=== PATIENT | female | born 1985 | race Caucasian/White ===

== ENCOUNTER 2021-10-06 20:05 | Emergency (ER) | payer OTHER ==
[2021-10-06 20:51] LABS: HEMOGLOBIN 14.8 gm/dl (12.3-15.3); RED BLOOD COUNT 4.81 M/UL (4.00-5.10); WHITE BLOOD COUNT 8.9 K/UL (4.5-11.0)
[2021-10-06 21:54] LABS: BUN/CREATININE RATIO 9 (0-10)
[2021-10-06] MEDS ORDERED: PREDNISONE20 MG PO (23:08)
[2021-10-06] MEDS ORDERED: AEROCHAMBER1 EA XX (23:08)
[2021-10-06] MEDS ORDERED: PROVENTIL HFA6.7 GM INH (23:08)
== END 2021-10-06 23:15 | disposition home or self-care (01) ==
LOC: ER1 20:05
PROVIDERS: Family Medicine
DX: B34.9 Viral infection, unspecified (principal); Z20.822 Contact with and (suspected) exposure to COVID-19; E66.01 Morbid (severe) obesity due to excess calories; F17.290 Nicotine dependence, other tobacco product, uncomplicated; R06.00 Dyspnea, unspecified; R06.2 Wheezing
CPT/HCPCS: 71045; 80053; 82550; 82553; 83605; 83735; 83880; 84100; 84484; 85025; 87040; 87081; 87880; 93005; 94664; 96374; 99284; J2930; U0002